=== PATIENT | female | born 1940 | race Caucasian/White ===

== ENCOUNTER → 2016-11-02 | Outpatient (CLI) | payer MEDICARE, OTHER ==
[~2016-11-02] MED LIST: BIOTIN1000 MC1 PO; CEREFOLIN PO; GELATIN PO; LISINOPRIL/HCTZ1 TA3 PO; LOMOTIL 0.025 M1 TAB PO; MULTI VITAMINS1 TAB PO; OXAPROZIN600 MG PO; PREMPRO 0.3 MG-1 TAB PO; VYTORIN 10 MG-21 TAB PO; ZOFRAN ODT4 MG PO
--- NOTE | 2016-11-03 14:14 | RADIOLOGY REPORT PS360 ---
UGI SERIES W/SMALL BOWEL ORDERING PHYSICIAN : Hugo Segura MD PATIENT AGE: 76 years GENDER: Female INDICATION: ENTERITIS previous episode of severe enteritis and abdominal pain TECHNIQUE: Air-contrast UGI followed by small bowel series performed by Dr. Rivas under fluoroscopy observation. Fluoroscopy 3 minutes 40 second COMPARISON: CT abdomen 10/20/2016 CT chest 05/30/2016 FINDINGS : UGI with small bowel follow-through Cervical esophagus. Prominent anterior marginal osteophytes lower C-spine. These particularly indents posterior aspect of the cervical esophagus at C5/6 and to lesser degree C6/7, C4/5. There is also slight indentation upon the right aspect of the esophagus at the base the neck but I believe this is due to prior to the aberrant t right subclavian discussed below. 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 Prior CT without contrast from 05/30/2016 and demonstrate the passage of this generous caliber right subclavian artery along the posterior aspect of the upper thoracic esophagus and compressing it on the prior CT. There is is corresponding is pronounced indentation seen on today's thoracic esophagram. This is important to note for any endoscopies Otherwise mid and distal esophagus appears satisfactory. No esophageal lesions evident. No hiatal hernia. No GE reflux.. Stomach pylorus and duodenal bulb with no significant findings. No ulceration or filling defect. Prompt gastric emptying. Normal duodenal loop. Only note some slight tapering in the region of the antrum but overall it appears I believe adequately distensible. Could reflect some irritability or scarring. No mucosal lesion evident no ulcer notch. If there should be pain relative to this area then consider EGD but I believe normal on this study. Pylorus unremarkable. Small bowel. Appears normal throughout. Normal caliber. Normal progression of barium. No bowel dilatation or obstruction. Spot views of small bowel and terminal ileum region appears satisfactory.. 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 Generous anterior marginal osteophytes indent posterior aspect lower cervical spine UGI.-No significant appearing findings. Slight tapering distal antrum noted but seems to distend satisfactorily normal mucosal pattern & overall felt to be WNL Small bowel series. Unremarkable
== END ==
LOC: RAD 08:45
DX: K52.9 Noninfective gastroenteritis and colitis, unspecified (principal)

== ENCOUNTER → 2017-10-04 | Outpatient (CLI) | payer MEDICARE, OTHER ==
[2017-10-04 17:13] LABS: LYMPH # 1.1 K/mm3 (0.7-4.5)
[2017-10-04 17:38] LABS: HEMOGLOBIN 9.6 g/dL (12.2-16.2)
[2017-10-04 18:05] LABS: BUN 35 mg/dL (7-18)
[2017-10-04 18:08] LABS: GFR (ESTIMATED) 33 ML/MIN (59-)
== END ==
LOC: LAB 16:38
PROVIDERS: Nurse Practitioner Family
DX: R42 Dizziness and giddiness (principal); R10.13 Epigastric pain; R12 Heartburn; Z79.899 Other long term (current) drug therapy